=== PATIENT | male | born 1950 | race Caucasian/White ===

== ENCOUNTER 2017-04-06 20:56 | Emergency (ER) | payer MEDICARE, OTHER ==
[~2017-04-06] VITALS: Ht 180.3 cm; Wt 130.0 kg
[~2017-04-06 20:56] MED LIST: BACT800T5 PO; CEPH500C3 PO; CPAP; HCTZ50TA PO; IBUP800T23 PO; LANTUSP SQ; LIPI80TA16 PO; LISI-360 PO; METF-324 PO; METO25 PO; NITR0.4S SL; NORC7.5T PO; NOVORP2 SQ; ST J81CH PO; TRAZ100 PO
[2017-04-06 20:57] VITALS: BP 195/92; PULSE 73; RESP 16; TEMP 97.6; O2SAT 96
[2017-04-06] MEDS ORDERED: LANTUS2P SQ (21:34)
[2017-04-06] MEDS ORDERED: LOSA50TA PO (21:34)
[2017-04-06] MEDS ORDERED: TRAZ100T4 PO (21:34)
[2017-04-06] MEDS ORDERED: METF1000 PO (21:34)
[2017-04-06] MEDS ORDERED: METO-309 PO (21:34)
[2017-04-06] MEDS ORDERED: NOVORP2 SQ (21:34)
[2017-04-06] MEDS ORDERED: ATOR1TAB18 PO (21:34)
[2017-04-06] MEDS ORDERED: ASPI81CH CHEW (21:34)
[2017-04-06] MEDS ORDERED: IBUP800T23 PO (21:34)
[2017-04-06] MEDS ORDERED: PRAZ5CAP PO (21:34)
[2017-04-06] MEDS ORDERED: NITR1SUB3 SL (21:34)
[2017-04-06 22:09] VITALS: BP 159/77; PULSE 78; RESP 16; O2SAT 96
--- NOTE | 2017-04-06 23:01 | RADRPT ---
EXAM DATE/TIME: 04/06/2017 21:24 [place] COMPARISON: No previous studies available for comparison. INDICATIONS : Right knee pain, fell MEDICAL HISTORY : Arthritis. SURGICAL HISTORY : None. ENCOUNTER: Initial ACUITY: 1 day PAIN SCORE: 9/10 LOCATION: Right Knee FINDINGS: There is mild osteoarthritis at the right knee. Small joint effusion. No acute fracture or subluxatio n. CONCLUSION: 1. Mild osteoarthritis of the right knee with small joint effusion. Des Hernandez MD on April 06, 2017 at 22:58 Board Certified Radiologist. This report was verified electronically.
[2017-04-06] MEDS ORDERED: PRED10PA2 PO (23:14)
[2017-04-06] MEDS ORDERED: ULTR50TA5 PO (23:14)
--- NOTE | 2017-04-06 23:14 | PD ---
HPI . Right knee pain Chief Complaint: Pain: Acute or Chronic Time Seen by Provider: 21:17 Travel History International Travel<30 days: No Contact w/Intl Traveler<30days: No Traveled to known affect area: No History of Present Illness HPI Patient presents complaining with right knee pain. He reports arthritis in both knees. He states that his right knee gave way earlier today he has had increased pain since that time. He states that he has not taken anything for the pain. He rates the pain as 9/10. Pain is exacerbated by movement and walking. PFSH Past Medical History Hx Anticoagulant Therapy: Yes (ASA) Blood Disorders: No Anxiety: Yes Depression: Yes Cancer: Yes (SKIN) Cardiac Catheterization: Yes ( STENTS) Cardiovascular Problems: Yes ([place], CARDIAC CATH, STENTS, HTN) High Cholesterol: Yes Chemotherapy: No COPD: Yes (NEVER SMOKED) Diabetes: Yes (TYPE 2, INSULIN) Patient Takes Glucophage: Yes Diminished Hearing: Yes ([place]) Diverticulitis: Yes Endocrine: Yes (DIABETES SINCE 1997) Fibromyalgia: Yes Gastrointestinal Disorders: Yes (HX LOWER ABD PAIN X 4 DAYS, POOR APPETITE, NAUSEA ) Genitourinary: Yes (HAD URETRAL DILATION) Hypertension: Yes Immune Disorder: No Implanted Vascular Access Dvce: No Musculoskeletal: Yes Neurologic: No Psychiatric: Yes Respiratory: Yes (COPD-SLEEP APNEA - ON CPAP DURING SLEEP-DROPS TO LOW 80'S BUT COMES UP AWAK) Radiation Therapy: No Sleep Apnea: Yes (WEARS CPAP AT NIGHT) Past Surgical History Abdominal Surgery: Yes (HERNIA REPAIR NEAR [employer]) Ear Surgery: Yes (EAR DRUM) Genitourinary Surgery: Yes (URETRAL DILATION) Neurologic Surgery: No Other Surgery: Yes ( HERNIA, URETRAL DILATION, NASAL SURG, BROKEN BONES) Social History Alcohol Use: No Tobacco Use: No Substance Use: No Allergies-Medications (Allergen,Severity, Reaction): Coded Allergies: Ceclor (Verified Allergy, Severe, HIVES, 04/06/17) Galantamine (Verified Allergy, Severe, HIVES, 04/06/17) Omeprazole (Verified Allergy, Severe, HIVES, 04/06/17) Reported Meds & Prescriptions Reported Meds & Active Scripts Active Reported Nitroglycerin SL (Nitroglycerin) 0.4 Mg Subl 0.4 Mg SL DIRECTED PRN ONE TABLET UNDER THE TONGUE NEEDED FOR CHEST PAIN, MAY REPEAT EVERY FIVE MINUTES FOR A TOTAL OF 3 DOSES OR CALL 911 IF NO RELIEF Novolin R Inj (Insulin Human Regular) 1,000 Unit/10 Ml Vial 0 SQ DIRECTED Sliding Scale As Directed. Lantus Inj (Insulin Glargine) 1,000 Unit/10 Ml Vial 50 Units SQ HS Metformin (Metformin HCl) 1,000 Mg Tab 1,000 Mg PO BIDPC With meals Ibuprofen 800 Mg Tab 800 Mg PO TID Aspirin 81 Mg Chew 81 Mg CHEW DAILY Losartan (Losartan Potassium) 50 Mg Tab 50 Mg PO DAILY Prazosin (Prazosin HCl) 5 Mg Cap 5 Mg PO HS Trazodone (Trazodone HCl) 100 Mg Tab 100 Mg PO HS Lopressor (Metoprolol Tartrate) 50 Mg Tab 25 Mg PO BID Atorvastatin (Atorvastatin Calcium) 80 Mg Tab 80 Mg PO HS Review of Systems ROS Limitations: Other: (patient is not very forthcoming with his history) Except as stated in HPI: all other systems reviewed are Neg Musculoskeletal: Positive: Arthralgias Physical Exam Narrative GENERAL: Awake and alert and in no acute distress. SKIN: Warm and dry. HEAD: Atraumatic. Normocephalic. EYES: Pupils equal and round. NECK: Trachea midline. CARDIOVASCULAR: Regular rate and rhythm. RESPIRATORY: No accessory muscle use. MUSCULOSKELETAL: Right knee has no deformity. There is no swelling or bruising. The knee is stable. Distally neurovascularly intact. NEUROLOGICAL: Awake and alert. No obvious cranial nerve deficits. Motor grossly within normal limits. Normal speech. PSYCHIATRIC: Appropriate mood and affect; insight and judgment normal. Data Data Last Documented VS Vital Signs Date Time Temp Pulse Resp B/P Pulse Ox O2 Delivery O2 Flow Rate FiO2 04/06/17 22:09 78 16 159/77 96 Room Air 04/06/17 20:57 97.6 Orders Knee, Complete (4vws) (04/06/17 21:17) [facility] Medical Decision Making Medical Screen Exam Complete: Yes Emergency Medical Condition: Yes Differential Diagnosis Differential diagnosis of joint pain includes but is not limited to arthritis, gout, sprain/strain, fracture, dislocation Narrative Course Patient presents with right knee pain. He states that the knee gave out on him earlier today and that he has had increased pain since that time. His exam is unremarkable. Last Impressions Knee X-Ray 04/06/172 Signed Impressions: Service Date/Time: Thursday, April 06, 2017 21:24 - CONCLUSION: 1. Mild osteoarthritis of the right knee with small joint effusion. Des Hernandez MD The x-ray was independently viewed by me. Diagnosis Primary Impression: Right knee pain Qualified Code: M25.561 - Acute pain of right knee Additional Impression: Osteoarthritis, knee Qualified Code: M17.11 - Primary osteoarthritis of right knee Patient Instructions: General Instructions, Osteoarthritis (DC) Med/Other Pt SpecificInfo: Prescription(s) given Scripts Tramadol (Ultram)50 Mg Tab50 Mg PO Q4H PRN (PAIN) #12 TAB Ref 0 Prov:Alisha Card MD 04/06/17 Prednisone (48) 10 mg tab Dose Pack 10 Mg Dspk10 Mg PO DIRECTED #1 DSPK Ref 0 Prov:Alisha Card MD 04/06/17 Disposition: 01 DISCHARGE HOME Condition: Stable Alisha Card MD April 06, 2017 23:14
[2017-04-06] MEDS ORDERED: ACETAMINOPHEN/HYDROcodone 325 MG/5 MG TAB PO ONE (23:15)
== END 2017-04-06 23:45 | disposition home or self-care (01) ==
LOC: NEPD 20:56
DX: M25.561 Pain in right knee (principal); M17.11 Unilateral primary osteoarthritis, right knee; E11.9 Type 2 diabetes mellitus without complications; J44.9 Chronic obstructive pulmonary disease, unspecified; M79.7 Fibromyalgia; I10 Essential (primary) hypertension; G47.30 Sleep apnea, unspecified; Z95.5 Presence of coronary angioplasty implant and graft; Z79.01 Long term (current) use of anticoagulants
CPT/HCPCS: 73564; 99284